=== PATIENT | female | born 1930 | race Caucasian/White ===

== ENCOUNTER 2018-01-08 11:25 | Inpatient (IN) | payer BC, OTHER ==
--- NOTE | 2018-01-08 13:04 | PDOC ---
History of Present Illness - General Stated Complaint: FALL Time Seen by Provider: 01/08/18 12:03 History Source: Patient Exam Limitations: No Limitations - History of Present Illness Initial Comments: 01/08/18 13:54 Ms. Rodriguez is a 87 yo F with a hx of recent UTI (completed bactrim abx 8 days ago), arthritis, HTN, schizophrenia (per daughter), and yong/depression presents to the emergency department for concern of change in mentation s/p fall 8 days ago while getting out of bed. The patient states she is unable to ambulate throughout the house, only to the bathroom with the assistance of a walker. She fell out of her bed attempting to go to the bathroom, landing on her left face on carpet without LOC. She denies pain unless she palpates the left cheek. She states she felt lightheaded prior to the event, but denies chest pain, palpitations, SOB, and dizziness. Per the daughter, she is concerned her mother (the patient) is acting off ("she keeps talking about the past") but denies confusion or altered mental status. In addition, she recently completed a course of abx (bactrim) 8 days ago for a UTI. She continues to have dysuria, but denies hematuria. Denies the following: fever, chills, headache, visual changes, SOB, chest pain, abdominal pain, diarrhea, hematochezia, melena , and leg pain/swelling. Pmhx: Refer to above Shx: Right knee surgery Meds: zyprexa, benztropine, 2 anti-HTN medications (doesnt remember what they were) Allergies: NKDA Social hx: Denies tobacco, alcohol, and substance abuse. 01/08/18 16:32 01/08/18 17:24 Past History - Past Medical History Allergies/Adverse Reactions: Allergies Allergy/AdvReac Type Severity Reaction Status Date / Time No Known Allergies Allergy Verified 01/08/18 14:33 Home Medications: Ambulatory Orders Amlodipine Besylate 5 mg PO DAILY 01/08/18 Benztropine Mesylate 1 mg PO HS 01/08/18 Enalapril Maleate [Vasotec -] 10 mg PO DAILY 01/08/18 Olanzapine 7.5 mg PO HS 01/08/18 Review of Systems - Review of Systems Able to Perform ROS?: Yes Is the patient limited Telugu proficient: No Constitutional: Yes: Weakness. No: Chills, Diaphoresis, Fever HEENTM: No: Eye Pain, Recent change in vision, Nose Pain, Throat Pain Respiratory: No: Shortness of Breath Cardiac (ROS): No: Chest Pain, Palpitations, Syncope ABD/GI: Yes: Poor Fluid Intake. No: Constipated, Diarrhea, Nausea, Rectal Bleeding, Vomiting, Tarry Stools : Yes: Dysuria. No: Hematuria Musculoskeletal: Yes: Joint Pain Integumentary: No: Rash Neurological: No: Headache, Numbness, Paresthesia, Unsteady Gait Psychiatric: No: Stressors Endocrine: No: Unexplained Weight Loss Hematologic/Lymphatic: No: Anemia *Physical Exam - Physical Exam General Appearance: Yes: Nourished, Appropriately Dressed. No: Apparent Distress HEENT: positive: EOMI, ISABEL, Normal Voice Neck: negative: Lymphadenopathy (R), Lymphadenopathy (L) Respiratory/Chest: positive: Lungs Clear, Normal Breath Sounds. negative: Chest Tender, Respiratory Distress, Accessory Muscle Use Cardiovascular: positive: Regular Rhythm, Regular Rate, S1, S2 Gastrointestinal/Abdominal: positive: Normal Bowel Sounds, Flat, Soft. negative : Tender, Pulsatile Mass Musculoskeletal: positive: Normal Inspection. negative: CVA Tenderness Extremity: positive: Normal Capillary Refill, Normal Inspection, Normal Range of Motion Integumentary: positive: Normal Color, Dry, Warm Neurologic: positive: Fully Oriented, Alert, Normal Mood/Affect ED Treatment Course - LABORATORY CBC & Chemistry Diagram: 01/08/18 14:30 01/08/18 14:30 Medical Decision Making - Medical Decision Making 01/08/18 13:22 Patient was picked up by me at 1hr and 39 minutes into ED stay. Ms. Rodriguez is a 87 yo F with a hx of recent UTI (completed bactrim abx 8 days ago), arthritis, HTN, schizophrenia (per daughter), and yong/depression presents to the emergency department for concern of change in mentation s/p fall 8 days ago while getting out of bed. Initial vitals: Initial Vital Signs Temp Pulse Resp BP Pulse Ox 97.0 F L 66 18 93/53 L 97 01/08/18 11:25 01/08/18 11:25 01/08/18 11:25 01/08/18 11:25 01/08/18 11:25 Work up: Laboratory Results - last 24 hr 01/08/18 01/08/18 01/08/18 14:30 14:30 15:00 WBC 12.8 H RBC 3.52 L Hgb 10.8 Hct 32.3 L MCV 91.7 MCH 30.6 MCHC 33.4 RDW 14.2 Plt Count 225 MPV 10.0 Sodium 136 Potassium 6.4 H* Chloride 113 H Carbon Dioxide 16 L Anion Gap 7 L BUN 73 H Creatinine 1.9 H Creat Clearance w eGFR 25.06 Random Glucose 75 Calcium 8.7 Total Bilirubin 0.2 AST 18 ALT 24 Alkaline Phosphatase 93 Creatine Kinase 71 Troponin I < 0.02 Total Protein 6.9 Albumin 3.7 Urine Color Yellow Urine Appearance Cloudy Urine pH 5.0 Ur Specific [place] 1.012 Urine Protein 1+ H Urine Glucose (UA) Negative Urine Ketones Negative Urine Blood 3+ H Urine Nitrite Negative Urine Bilirubin Negative Urine Urobilinogen Negative Ur Leukocyte Esterase 2+ H Urine WBC (Auto) 161 Urine RBC (Auto) 279 Ur Epithelial Cells Rare Urine Mucus Rare CT head shows no acute intracranial pathology. CT facial bones does not show acute pathologies. CXR does not show acute pathologies. Potassium was shown to be 6.4 with a creatinine of 1.9. We contacted her at home health care services who had previous labs on her on 12/22/2017 that showed a creatinine of 1.66 and a potassium of 5.0. The patient's EKG did not show changes related to the potassium (no peaked t waves, p wave depressions, and QRS elongations were noted ). The patient was given calcium gluconate, D50, insulin, and sodium bicarbonate for potassium treatment and to be admitted for hyperkalemia in the setting of JOVON (Acute vs chronic) Dispo: Admit *DC/Admit/Observation/Transfer Diagnosis at time of Disposition: Hyperkalemia, JOVON (acute kidney injury) - Discharge Dispostion Condition at time of disposition: Unchanged/Unknown Decision to Admit order: Yes - Referrals - Patient Instructions - Post Discharge Activity
[2018-01-08 14:34] VITALS: BMI 24.0
[2018-01-08 14:53] LABS: HEMATOCRIT 32.3 % (32.4-45.2); HEMOGLOBIN 10.8 GM/dL (10.7-15.3); MCH 30.6 pg (25.7-33.7); MCHC 33.4 g/dl (32.0-36.0); MEAN CELL VOLUME 91.7 fl (80-96); PLATELET COUNT 225 K/MM3 (134-434); RBC 3.52 M/mm3 (3.60-5.2); RDW 14.2 % (11.6-15.6); WHITE BLOOD COUNT 12.8 K/mm3 (4.0-10.0)
[2018-01-08 15:10] LABS: URINE APPEARANCE CLOUDY; URINE BILIRUBIN NEGATIVE (<2.0 mg/dL); URINE COLOR YELLOW; URINE GLUCOSE (UA) NEGATIVE (NEGATIVE); URINE KETONE NEGATIVE (NEGATIVE); URINE LEUK ESTERASE 2+ (NEGATIVE); URINE NITRITE NEGATIVE (NEGATIVE); URINE PROTEIN 1+ (NEGATIVE); URINE UROBILINOGEN NEGATIVE mg/dL (0.2-1.0)
[2018-01-08 15:24] LABS: ALBUMIN 3.7 g/dl (3.4-5.0); ALK PHOS 93 U/L (45-117); ANION GAP 7 MMOL/L (8-16); BILIRUBIN,TOTAL 0.2 mg/dL (0.2-1); BLOOD UREA NITROGEN 73 mg/dL (7-18); CALCIUM 8.7 mg/dL (8.5-10.1); CHLORIDE 113 mmol/L (98-107); CO2 16 mmol/L (21-32); CREATININE 1.9 mg/dL (0.55-1.3); GLUCOSE,RANDOM 75 mg/dL (74-106); SGOT/AST 18 U/L (15-37); SGPT/ALT 24 U/L (13-61); SODIUM 136 mmol/L (136-145); TOT PROT 6.9 g/dl (6.4-8.2)
[2018-01-08 15:29] LABS: EPI CELLS RARE /HPF (FEW); URINE MUCUS RARE
[2018-01-08 15:31] LABS: POTASSIUM 6.4 mmol/L (3.5-5.1)
[2018-01-08] MEDS ORDERED: INSULIN REGULAR HUMAN 100 UNITS/ML *VIAL IVPUSH ONE (15:53)
[2018-01-08] MEDS ORDERED: CALCIUM GLUCONATE 10% - 1,000 MG/10 ML VIAL IVPB ONE (15:53)
[2018-01-08] MEDS ORDERED: DEXTROSE 50%-WATER - 25 GM/50 ML VIAL IVPUSH ONE (15:53)
[2018-01-08] MEDS ORDERED: SODIUM BICARBONATE 4.2% 5 MEQ/10 ML DISP.SYRIN IVPUSH ONE (15:58)
[2018-01-08] MEDS ORDERED: SODIUM BICARBONATE 8.4% 50 MEQ/50 ML DISP.SYRIN IVPUSH ONE (15:59)
[2018-01-08] MEDS ORDERED: SODIUM CHLORIDE 1,000 ML IV STA (16:01)
--- NOTE | 2018-01-08 16:15 | PDOC ---
Attending Attestation - Resident Resident Name: Berto Fermin - ED Attending Attestation I have performed the following: I have examined & evaluated the patient, The case was reviewed & discussed with the resident, I agree w/resident's findings & plan, Exceptions are as noted - HPI HPI: 01/08/18 16:47 Agree with residents HPI - Physicial Exam PE: 01/08/18 16:47 Agree with Residents PE - Medical Decision Making 01/08/18 16:49 87 years old with recent UTI completed course of Bactrim arthritis hypertension schizophrenia yong depression presents to the ED for slight change in mental status per the daughter she had a fall 8 days ago or getting out of bed baseline patient is unable to ambulate History Limited from patient In the emergency department laboratory analysis notable for creatinine of 1.9 we are awaiting fax labs to establish what her baseline is, a potassium of 6.4 with no EKG changes as well as a urinary tract infection on her urinalysis Hyperkalemia cocktail given to patient. Patient given ceftriaxone for UTI. We'll admit to medicine for further management Heart Score/ECG Review - ECG Impressions Comment:: 01/08/18 16:[address] elevations, no T-wave inversions, no peaked T waves. No flattening of P waves no prolonged FL or prolonged QRS Interpreted by me.
[2018-01-08] MEDS ORDERED: SODIUM BICARBONATE 8.4% - 50 ML ONE (16:23)
[2018-01-08] MEDS ORDERED: DEXTROSE 50%-WATER 25 GM/50 ML DISP.SYRIN ONE (16:23)
[2018-01-08] MEDS ORDERED: INSULIN REGULAR HUMAN 100 UNITS/ML *VIAL ONE (16:24)
[2018-01-08] MEDS ORDERED: CALCIUM GLUCONATE 10% - 1,000 MG/10 ML VIAL ONE (16:25)
[2018-01-08] MEDS ORDERED: CEFTRIAXONE 1 GM in DEXTROSE 5%-WATER - 100 ML IVPB ONE (16:45)
[2018-01-08] MEDS ORDERED: CEFTRIAXONE 1 GM/50 ML BAG ONE (16:56)
--- NOTE | 2018-01-08 18:39 | HP ---
Admitting History and Physical - Primary Care Physician PCP: Izabel Arreguin - Admission History of Present Illness: 87 yo F with a hx of recent UTI (completed bactrim abx 8 days ago), arthritis, HTN, schizophrenia (per daughter), and yong/depression presents to the emergency department for concern of change in mentation s/p fall 8 days ago while getting out of bed. The patient states she is unable to ambulate throughout the house, only to the bathroom with the assistance of a walker. She fell out of her bed attempting to go to the bathroom, landing on her left face on carpet without LOC. She denies pain unless she palpates the left cheek. She states she felt lightheaded prior to the event, but denies chest pain, palpitations, SOB, and dizziness. Per the daughter, she is concerned her mother (the patient) is acting off ("she keeps talking about the past") but denies confusion or altered mental status. In addition, she recently completed a course of abx (bactrim) 8 days ago for a UTI. She continues to have dysuria, but denies hematuria. - Past Medical History Cardiovascular: Yes: HTN Psych: Yes: Schizophrenia - Smoking History Smoking history: Smoker current status UNK Have you smoked in the past 12 months: No - Alcohol/Substance Use Hx Alcohol Use: No Home Medications - Allergies Allergies/Adverse Reactions: Allergies Allergy/AdvReac Type Severity Reaction Status Date / Time No Known Allergies Allergy Verified 01/08/18 14:33 - Home Medications Home Medications: Ambulatory Orders Amlodipine Besylate 5 mg PO DAILY 01/08/18 Benztropine Mesylate 1 mg PO HS 01/08/18 Enalapril Maleate [Vasotec -] 10 mg PO DAILY 01/08/18 Olanzapine 7.5 mg PO HS 01/08/18 Physical Examination Vital Signs: Vital Signs Temperature 97.7 F 01/08/18 17:01 Pulse Rate 76 01/08/18 17:01 Respiratory Rate 18 01/08/18 17:01 Blood Pressure 119/80 01/08/18 17:01 O2 Sat by Pulse Oximetry (%) 100 01/08/18 17:01 Constitutional: Yes: No Distress HENT: Yes: Atraumatic Neck: Yes: Supple Cardiovascular: Yes: Regular Rate and Rhythm Respiratory: Yes: Rhonchi Gastrointestinal: Yes: Normal Bowel Sounds Extremities: Yes: WNL Peripheral Pulses WNL: No Neurological: Yes: Alert, Oriented Labs: CBC, BMP 01/08/18 14:30 01/08/18 14:30 Imaging - Results X-ray: Report Reviewed Cat Scan: Report Reviewed Problem List - Problems (1) JOVON (acute kidney injury) Code(s): N17.9 - ACUTE KIDNEY FAILURE, UNSPECIFIED (2) Hyperkalemia Code(s): E87.5 - HYPERKALEMIA (3) UTI (urinary tract infection) Assessment/Plan: on iv abx cxs sent Code(s): N39.0 - URINARY TRACT INFECTION, SITE NOT SPECIFIED Assessment/Plan Laboratory Tests 01/08/18 01/08/18 01/08/18 14:30 14:30 15:00 WBC 12.8 H RBC 3.52 L Hgb 10.8 Hct 32.3 L MCV 91.7 MCH 30.6 MCHC 33.4 RDW 14.2 Plt Count 225 MPV 10.0 Sodium 136 Potassium 6.4 H* Chloride 113 H Carbon Dioxide 16 L Anion Gap 7 L BUN 73 H Creatinine 1.9 H Creat Clearance w eGFR 25.06 Random Glucose 75 Calcium 8.7 Total Bilirubin 0.2 AST 18 ALT 24 Alkaline Phosphatase 93 Creatine Kinase 71 Troponin I < 0.02 Total Protein 6.9 Albumin 3.7 Urine Color Yellow Urine Appearance Cloudy Urine pH 5.0 Ur Specific [place] 1.012 Urine Protein 1+ H Urine Glucose (UA) Negative Urine Ketones Negative Urine Blood 3+ H Urine Nitrite Negative Urine Bilirubin Negative Urine Urobilinogen Negative Ur Leukocyte Esterase 2+ H Urine WBC (Auto) 161 Urine RBC (Auto) 279 Ur Epithelial Cells Rare Urine Mucus Rare Active Medications Generic Name Dose Route Start Last Admin Trade Name Freq PRN Reason Stop Dose Admin Acetaminophen 650 mg 01/08/18 18:47 Tylenol - PO Q6H PRN FEVER Amlodipine Besylate 5 mg 01/09/18 10:00 01/09/18 11:29 Norvasc - PO 5 mg DAILY SURAJ Administration Benztropine Mesylate 1 mg 01/08/18 22:00 01/08/18 22:24 Cogentin - PO 1 mg HS SURAJ Administration Heparin Sodium (Porcine) 5,000 unit 01/08/18 22:00 11/06/18 11:29 Heparin - SQ 5,000 unit BID SURAJ Administration Sodium Chloride 1,000 mls @ 75 mls/hr 01/08/18 19:00 01/09/18 08:09 Normal Saline - IV 75 mls/hr ASDIR SURAJ Administration Ceftriaxone Sodium 1 gm/ 50 mls @ 100 mls/hr 01/09/18 10:00 01/09/18 11:29 Dextrose IVPB 100 mls/hr DAILY SURAJ Administration Protocol Olanzapine 2.5 mg/ Olanzapine 7.5 mg 01/09/18 22:00 5 mg PO HS SURAJ
[2018-01-08] MEDS ORDERED: ACETAMINOPHEN 325 MG TABLET (FP) PO PRN (18:47)
[2018-01-08] MEDS: SODIUM CHLORIDE 1,000 ML IV SCH (20:06)
[2018-01-08] MEDS ORDERED: HEPARIN NA (PORCINE) 5,000 UNITS/ML 1ML VIAL ONE (21:39)
[2018-01-08] MEDS ORDERED: OLANZapine 10 MG TABLET ONE (21:39)
[2018-01-08] MEDS: HEPARIN NA (PORCINE) 5,000 UNITS/ML 1ML VIAL SQ SCH (21:50)
[2018-01-08] MEDS ORDERED: OLANZapine 7.5 MG TABLET PO SCH (22:00)
[2018-01-08] MEDS: BENZTROPINE MESYLATE 1 MG TABLET (FP) PO SCH (22:24)
[2018-01-09] MEDS: SODIUM CHLORIDE 1,000 ML IV SCH ×2 (08:09→21:09)
[2018-01-09] MEDS ORDERED: PNEUMOC 13-VAL CONJ-DIP CRM/PF 0.5 ML DISP.SYRIN IM ONE (10:00)
[2018-01-09] MEDS ORDERED: ENALAPRIL MALEATE 10 MG TABLET (FP) PO SCH (10:00)
[2018-01-09] MEDS ORDERED: DEXTROSE 5%-WATER - 50 ML IVPB ONE (11:17)
[2018-01-09] MEDS ORDERED: cefTRIAXone SODIUM 1 GM VIAL ONE (11:17)
[2018-01-09] MEDS: amLODIPine BESYLATE 5 MG TABLET (FP) PO SCH (11:29)
[2018-01-09] MEDS: HEPARIN NA (PORCINE) 5,000 UNITS/ML 1ML VIAL SQ SCH ×2 (11:29→21:12)
[2018-01-09] MEDS: CEFTRIAXONE 1 GM in DEXTROSE 5%-WATER - 50 ML IVPB SCH (11:29)
--- NOTE | 2018-01-09 12:09 | EKG ---
Test Reason : Blood Pressure : / mmHG Vent. Rate : 068 BPM Atrial Rate : 068 BPM P-R Int : 214 ms QRS Dur : 072 ms QT Int : 370 ms P-R-T Axes : 071 039 079 degrees QTc Int : 393 ms SINUS RHYTHM WITH 1ST DEGREE A-V BLOCK CANNOT RULE OUT ANTERIOR INFARCT , AGE UNDETERMINED ABNORMAL ECG NO PREVIOUS ECGS AVAILABLE Confirmed by MD JAYCEE, TIMO ([id number]) on 01/09/2018 12:09:23 PM Referred By: Confirmed By:TIMO CHAMPION MD
--- NOTE | 2018-01-09 12:38 | CON.ID ---
Consult Consult Specialty:: infectious diseases Reason for Consultation:: weakness,r/o uti - History of Present Illness Chief Complaint: fall,weakness,r/o uti History of Present Illness: 7 yo F with a hx of recent UTI caompleted treatment with bactrim 8 days back, arthritis, HTN, schizophrenia , and yong/depression admitted because of concern of change in mentation s/p fall 8 days ago while getting out of bed. The patient states she is unable to ambulate throughout the house, only to the bathroom with the assistance of a walker. She fell out of her bed attempting to go to the bathroom, landing on her left face on carpet without LOC. She denies pain unless she palpates the left cheek. She states she felt lightheaded prior to the event, but denies chest pain, palpitations, SOB, and dizziness. Per the daughter, she is concerned her mother (the patient) is acting off ("she keeps talking about the past") but denies confusion or altered mental status. In addition, she recently completed a course of abx (bactrim) 8 days ago for a UTI. She continues to have dysuria, but denies hematuria. Denies the following: fever, chills, headache, visual changes, SOB, chest pain, abdominal pain, diarrhea, hematochezia, melena, and leg pain/swelling. patient currently is feeling well but feels that she is heavy on the left side eating well.brother in the room - History Source History Provided By: Patient, Medical Record Limitations to Obtaining History: Clinical Condition - Past Medical History Cardio/Vascular: Yes: HTN ...: No Psych: Yes: Schizophrenia - Alcohol/Substance Use Hx Alcohol Use: No - Smoking History Smoking history: Never smoked Have you smoked in the past 12 months: No Home Medications - Allergies Allergies/Adverse Reactions: Allergies Allergy/AdvReac Type Severity Reaction Status Date / Time No Known Allergies Allergy Verified 01/08/18 14:33 - Home Medications Home Medications: Ambulatory Orders Amlodipine Besylate 5 mg PO DAILY 01/08/18 Benztropine Mesylate 1 mg PO HS 01/08/18 Enalapril Maleate [Vasotec -] 10 mg PO DAILY 01/08/18 Olanzapine 7.5 mg PO HS 01/08/18 Review of Systems - Review of Systems Constitutional: reports: Weakness Eyes: reports: No Symptoms HENT: reports: No Symptoms Neck: reports: No Symptoms Cardiovascular: reports: No Symptoms Respiratory: reports: No Symptoms Gastrointestinal: reports: No Symptoms Genitourinary: reports: No Symptoms Musculoskeletal: reports: Other Integumentary: reports: No Symptoms Neurological: reports: No Symptoms Endocrine: reports: No Symptoms Hematology/Lymphatic: reports: No Symptoms Psychiatric: reports: No Symptoms Physical Exam Vital Signs: Vital Signs Temperature 98.2 F 01/09/18 06:00 Pulse Rate 66 01/09/18 06:00 Respiratory Rate 20 01/09/18 06:00 Blood Pressure 103/59 L 01/09/18 06:00 O2 Sat by Pulse Oximetry (%) 97 01/08/18 23:00 Constitutional: Yes: Well Nourished, No Distress, Calm Cardiovascular: Yes: Regular Rate and Rhythm Respiratory: Yes: Regular, CTA Bilaterally Gastrointestinal: Yes: Normal Bowel Sounds, Soft Musculoskeletal: Yes: Other Extremities: Yes: Other Neurological: Yes: Alert, Oriented Psychiatric: Yes: Alert, Oriented Labs: CBC, BMP 01/08/18 14:30 01/08/18 14:30 Imaging - Results Cat Scan: Report Reviewed, Image Reviewed Assessment/Plan we will continue abx for now await for all cx reports plan decrease iv fluids monitor labs continue abx rest as per the team
[2018-01-09 14:13] LABS: HEMATOCRIT 30.6 % (32.4-45.2); HEMOGLOBIN 10.4 GM/dL (10.7-15.3); MCHC 33.9 g/dl (32.0-36.0); MEAN CELL VOLUME 91.5 fl (80-96); MEAN PLT VOLUME 10.3 fl (7.5-11.1); PLATELET COUNT 197 K/MM3 (134-434); RBC 3.34 M/mm3 (3.60-5.2); RDW 14.1 % (11.6-15.6)
[2018-01-09 15:03] LABS: ANION GAP 6 MMOL/L (8-16); BLOOD UREA NITROGEN 49 mg/dL (7-18); CALCIUM 8.6 mg/dL (8.5-10.1); CHLORIDE 114 mmol/L (98-107); CO2 19 mmol/L (21-32); CREATININE 1.4 mg/dL (0.55-1.3); GLUCOSE,RANDOM 124 mg/dL (74-106); POTASSIUM 5.4 mmol/L (3.5-5.1); SODIUM 138 mmol/L (136-145)
--- NOTE | 2018-01-09 15:36 | PN ---
Progress Note, Physician - Current Medication List Current Medications: Active Medications Acetaminophen (Tylenol -) 650 mg PO Q6H PRN PRN Reason: FEVER Amlodipine Besylate (Norvasc -) 5 mg PO DAILY [facility] Last Admin: 01/09/18 11:29 Dose: 5 mg Benztropine Mesylate (Cogentin -) 1 mg PO HS [facility] Last Admin: 01/08/18 22:24 Dose: 1 mg Heparin Sodium (Porcine) (Heparin -) 5,000 unit SQ BID [facility] Last Admin: 01/09/18 11:29 Dose: 5,000 unit Sodium Chloride (Normal Saline -) 1,000 mls @ 75 mls/hr IV ASDIR [facility] Last Admin: 01/09/18 08:09 Dose: 75 mls/hr Ceftriaxone Sodium 1 gm/ (Dextrose) 50 mls @ 100 mls/hr IVPB DAILY [facility]; Protocol Last Admin: 01/09/18 11:29 Dose: 100 mls/hr Olanzapine 2.5 mg/ Olanzapine (5 mg) 7.5 mg PO [facility] - Objective Vital Signs: Vital Signs Temperature 99.6 F 01/09/18 15:07 Pulse Rate 72 01/09/18 15:07 Respiratory Rate 17 01/09/18 15:07 Blood Pressure 130/43 L 01/09/18 15:07 O2 Sat by Pulse Oximetry (%) 97 01/08/18 23:00 Constitutional: Yes: No Distress HENT: Yes: Atraumatic Neck: Yes: Supple Cardiovascular: Yes: Regular Rate and Rhythm Respiratory: Yes: CTA Bilaterally Gastrointestinal: Yes: Normal Bowel Sounds Extremities: Yes: WNL Edema: No Neurological: Yes: Alert, Oriented Labs: CBC, BMP 01/09/18 13:45 01/09/18 13:50 Problem List - Problems (1) JOVON (acute kidney injury) Assessment/Plan: cr improved on ivf Code(s): N17.9 - ACUTE KIDNEY FAILURE, UNSPECIFIED (2) Hyperkalemia Assessment/Plan: improve Code(s): E87.5 - HYPERKALEMIA (3) UTI (urinary tract infection) Assessment/Plan: on iv abx cxs sent Code(s): N39.0 - URINARY TRACT INFECTION, SITE NOT SPECIFIED Assessment/Plan as per pts dayghter and patient she hardly walks at home she can walk only to commode
[2018-01-09] MEDS ORDERED: OLANZapine 5 MG TABLET ONE (20:34)
[2018-01-09] MEDS ORDERED: OLANZapine 2.5 MG TABLET ONE (20:34)
[2018-01-09] MEDS: BENZTROPINE MESYLATE 1 MG TABLET (FP) PO SCH (21:11)
[2018-01-09] MEDS: OLANZAPINE 2.5 MG, OLANZAPINE 5 MG PO SCH (21:11)
[2018-01-10] MEDS: SODIUM CHLORIDE 1,000 ML IV SCH (04:31)
[2018-01-10] MEDS ORDERED: cefTRIAXone SODIUM 1 GM VIAL ONE (10:28)
[2018-01-10] MEDS ORDERED: DEXTROSE 5%-WATER - 50 ML IVPB ONE (10:28)
[2018-01-10] MEDS: CEFTRIAXONE 1 GM in DEXTROSE 5%-WATER - 50 ML IVPB SCH (10:58)
[2018-01-10] MEDS: HEPARIN NA (PORCINE) 5,000 UNITS/ML 1ML VIAL SQ SCH ×2 (10:59→21:30)
[2018-01-10] MEDS: amLODIPine BESYLATE 5 MG TABLET (FP) PO SCH (10:59)
--- NOTE | 2018-01-10 12:25 | PN ---
Progress Note, Physician History of Present Illness: patient stable doing well left side weakness improving no other issues - Current Medication List Current Medications: Active Medications Acetaminophen (Tylenol -) 650 mg PO Q6H PRN PRN Reason: FEVER Amlodipine Besylate (Norvasc -) 5 mg PO DAILY [facility] Last Admin: 01/10/18 10:59 Dose: 5 mg Benztropine Mesylate (Cogentin -) 1 mg PO HS [facility] Last Admin: 01/09/18 21:11 Dose: 1 mg Heparin Sodium (Porcine) (Heparin -) 5,000 unit SQ BID [facility] Last Admin: 01/10/18 10:59 Dose: 5,000 unit Ceftriaxone Sodium 1 gm/ (Dextrose) 50 mls @ 100 mls/hr IVPB DAILY [facility]; Protocol Last Admin: 01/10/18 10:58 Dose: 100 mls/hr Sodium Chloride (Normal Saline -) 1,000 mls @ 50 mls/hr IV ASDIR [facility] Last Admin: 01/10/18 04:31 Dose: 50 mls/hr Olanzapine 2.5 mg/ Olanzapine (5 mg) 7.5 mg PO [facility] Last Admin: 01/09/18 21:11 Dose: 7.5 mg - Objective Vital Signs: Vital Signs Temperature 99.5 F 01/10/18 06:00 Pulse Rate 99 H 01/10/18 06:00 Respiratory Rate 18 01/10/18 06:00 Blood Pressure 125/53 L 01/10/18 06:00 O2 Sat by Pulse Oximetry (%) 96 01/09/18 21:00 Constitutional: Yes: No Distress, Calm Cardiovascular: Yes: Regular Rate and Rhythm Respiratory: Yes: Regular, CTA Bilaterally Gastrointestinal: Yes: Normal Bowel Sounds, Soft Musculoskeletal: Yes: WNL Extremities: Yes: Other Neurological: Yes: Alert, Oriented Psychiatric: Yes: Alert, Oriented Labs: CBC, BMP 01/09/18 13:45 01/09/18 13:50 Assessment/Plan Problem List - Problems (1) JOVON (acute kidney injury) Code(s): N17.9 - ACUTE KIDNEY FAILURE, UNSPECIFIED (2) Hyperkalemia Code(s): E87.5 - HYPERKALEMIA (3) UTI (urinary tract infection) Code(s): N39.0 - URINARY TRACT INFECTION, SITE NOT 4 dehydration plan will stop abx and monitor physio if possible continue to monitor rest as per the team
--- NOTE | 2018-01-10 16:53 | PN ---
Progress Note, Physician - Current Medication List Current Medications: Active Medications Acetaminophen (Tylenol -) 650 mg PO Q6H PRN PRN Reason: FEVER Amlodipine Besylate (Norvasc -) 5 mg PO DAILY [facility] [place] Last Admin: 01/10/18 10:59 Dose: 5 mg Benztropine Mesylate (Cogentin -) 1 mg PO HS [facility] Last Admin: 01/09/18 21:11 Dose: 1 mg Heparin Sodium (Porcine) (Heparin -) 5,000 unit SQ BID [facility] Last Admin: 01/10/18 10:59 Dose: 5,000 unit Sodium Chloride (Normal Saline -) 1,000 mls @ 50 mls/hr IV ASDIR [facility] [place] Last Admin: 01/10/18 04:31 Dose: 50 mls/hr Olanzapine 2.5 mg/ Olanzapine (5 mg) 7.5 mg PO [facility] Last Admin: 01/09/18 21:11 Dose: 7.5 mg - Objective Vital Signs: Vital Signs Temperature 98.7 F 01/10/18 13:16 Pulse Rate 79 01/10/18 13:16 Respiratory Rate 17 01/10/18 13:16 Blood Pressure 129/48 L 01/10/18 13:16 O2 Sat by Pulse Oximetry (%) 98 01/10/18 09:00 Constitutional: Yes: No Distress HENT: Yes: Atraumatic Neck: Yes: Supple Cardiovascular: Yes: Regular Rate and Rhythm Respiratory: Yes: CTA Bilaterally Gastrointestinal: Yes: Normal Bowel Sounds Extremities: Yes: WNL Edema: No Peripheral Pulses WNL: Yes Neurological: Yes: Alert, Oriented Labs: CBC, BMP 01/09/18 13:45 01/09/18 13:50 Problem List - Problems (1) JOVON (acute kidney injury) Assessment/Plan: cr improved on ivf Code(s): N17.9 - ACUTE KIDNEY FAILURE, UNSPECIFIED (2) Hyperkalemia Assessment/Plan: improve Code(s): E87.5 - HYPERKALEMIA (3) UTI (urinary tract infection) Assessment/Plan: cxs negative Code(s): N39.0 - URINARY TRACT INFECTION, SITE NOT SPECIFIED
[2018-01-10 20:21] LABS: ALK PHOS 76 U/L (45-117); ANION GAP 10 MMOL/L (8-16); BILIRUBIN,TOTAL 0.1 mg/dL (0.2-1); BLOOD UREA NITROGEN 37 mg/dL (7-18); CALCIUM 8.2 mg/dL (8.5-10.1); CHLORIDE 113 mmol/L (98-107); CO2 17 mmol/L (21-32); CREATININE 1.1 mg/dL (0.55-1.3); GLUCOSE,RANDOM 93 mg/dL (74-106); POTASSIUM 5.5 mmol/L (3.5-5.1); SGOT/AST 16 U/L (15-37); SGPT/ALT 19 U/L (13-61); SODIUM 140 mmol/L (136-145); TOT PROT 5.8 g/dl (6.4-8.2)
[2018-01-10] MEDS ORDERED: OLANZapine 5 MG TABLET ONE (20:38)
[2018-01-10] MEDS ORDERED: OLANZapine 2.5 MG TABLET ONE (20:38)
[2018-01-10] MEDS: BENZTROPINE MESYLATE 1 MG TABLET (FP) PO SCH (21:30)
[2018-01-10] MEDS: OLANZAPINE 2.5 MG, OLANZAPINE 5 MG PO SCH (21:31)
[2018-01-11] MEDS: amLODIPine BESYLATE 5 MG TABLET (FP) PO SCH (10:08)
[2018-01-11] MEDS: HEPARIN NA (PORCINE) 5,000 UNITS/ML 1ML VIAL SQ SCH (10:08)
[2018-01-11 10:55] LABS: ALBUMIN 2.8 g/dl (3.4-5.0); ALK PHOS 79 U/L (45-117); ANION GAP 8 MMOL/L (8-16); BILIRUBIN,TOTAL 0.2 mg/dL (0.2-1); BLOOD UREA NITROGEN 33 mg/dL (7-18); CALCIUM 8.4 mg/dL (8.5-10.1); CHLORIDE 114 mmol/L (98-107); CO2 19 mmol/L (21-32); CREATININE 1.2 mg/dL (0.55-1.3); GLUCOSE,RANDOM 120 mg/dL (74-106); POTASSIUM 4.9 mmol/L (3.5-5.1); SGOT/AST 16 U/L (15-37); SGPT/ALT 18 U/L (13-61); SODIUM 140 mmol/L (136-145); TOT PROT 5.9 g/dl (6.4-8.2)
[2018-01-11 13:03] VITALS: BP 137/57; PULSE 79; TEMP 98.7
== END 2018-01-11 12:45 | disposition home or self-care (01) | DRG 683 ==
LOC: JER 11:25 → JERBED 16:15 → OBSVTOIN 18:40 → J5S 22:30
PROVIDERS: ADMIT Internal Medicine; ATTEND Internal Medicine
DX: N17.9 Acute kidney failure, unspecified (principal); N39.0 Urinary tract infection, site not specified; F30.2 Manic episode, severe with psychotic symptoms; E87.6 Hypokalemia; I10 Essential (primary) hypertension; E86.0 Dehydration
CPT/HCPCS: 36415; 70450-TC; 70486-TC; 71045-TC-FY; 80048; 80053; 81003; 81015; 82550; 84484; 85027; 87086; 93005; 93010; 97116-GP; 97161-GP; 99285-25; G0378; J1644; J7030